=== PATIENT | male | born 2000 | race American Indian/Alaskan Native ===

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

== ENCOUNTER 2020-10-09 21:23 | Emergency (ER) | payer MEDICAID ==
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
== END 2020-10-09 23:10 | disposition home or self-care (01) ==
LOC: JP.ED 21:23
DX: N30.00 Acute cystitis without hematuria (principal); E86.0 Dehydration; F41.9 Anxiety disorder, unspecified; F84.0 Autistic disorder; E66.9 Obesity, unspecified; Z88.0 Allergy status to penicillin; Z68.41 Body mass index [BMI] 40.0-44.9, adult
CPT/HCPCS: 36415; 80053; 80305-QW; 81003; 85025; 99283

== ENCOUNTER 2020-10-30 15:38 | Emergency (ER) | payer MEDICAID ==
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
== END 2020-10-30 17:13 | disposition home or self-care (01) ==
LOC: JP.ED 15:38
DX: S00.83XA Contusion of other part of head, initial encounter (principal); E66.9 Obesity, unspecified; F84.0 Autistic disorder; Z88.0 Allergy status to penicillin; Z68.1 Body mass index [BMI] 19.9 or less, adult; W22.8XXA Striking against or struck by other objects, initial encounter
CPT/HCPCS: 99283